=== PATIENT | female | born 1965 | race Caucasian/White ===

== ENCOUNTER 2022-07-03 21:53 | Emergency (ER) | payer MEDICARE, OTHER ==
[~2022-07-03] VITALS: Ht 165.1 cm; Wt 63.5 kg
[2022-07-03] MEDS ORDERED: diphenhydrAMINE 50 MG/1 ML VIAL IM ONE (22:45)
[2022-07-03] MEDS ORDERED: METOCLOPRAMIDE HCL 10 MG/2 ML VIAL IM ONE (22:45)
--- NOTE | 2022-07-03 22:59 | NUR ---
[employer] in room with patient. Badge #: [id number] officer Juan C
[2022-07-03 23:08] LABS: HEMATOCRIT 35.1 % (31.2-41.9); MEAN CORPUSCULAR VOLUME 81.8 fL (75.5-95.3); PLATELET COUNT (AUTO) 363 K/uL (179-408)
[2022-07-03 23:21] LABS: ALANINE AMINOTRANSFERASE 17 U/L (14-59); ALKALINE PHOSPHATASE 114 U/L (50-136); ASPARTATE AMINOTRANSFERASE 16 U/L (15-37); BILIRUBIN,DIRECT 0.1 mg/dL (0.0-0.2); BILIRUBIN,TOTAL 0.3 mg/dL (0.2-1.0); CARBON DIOXIDE 29 mmol/L (21-32); CHLORIDE 104 mmol/L (98-107); CREATININE 0.8 mg/dL (0.6-1.3); GLUCOSE 107 mg/dL (74-106); POTASSIUM 3.4 mmol/L (3.5-5.1); TOTAL PROTEIN, SERUM 7.6 g/dL (6.4-8.2); UREA NITROGEN, BLOOD 18 mg/dL (7-18)
[2022-07-03] MEDS ORDERED: diphenhydrAMINE 50 MG/1 ML VIAL ONE (23:48)
[2022-07-03 23:53] LABS: ETHANOL < 3 MG/DL (0-0)
[2022-07-04] MEDS ORDERED: ONDA4TAB5 PO (01:42)
--- NOTE | 2022-07-04 02:07 | NUR ---
Pt able to ambulate with no difficulty. Spoke with Dr. Méndez about the necessity to speak with a dialysis social worker tomorrow. Kept pt comfortable and given more juice and sandwich, and blankets.
[2022-07-04 03:28] VITALS: BP 128/65
== END 2022-07-04 02:07 | disposition home or self-care (01) ==
LOC: ER 21:53
DX: R51.9 Headache, unspecified (principal); R42 Dizziness and giddiness; R11.0 Nausea
CPT/HCPCS: 36415; 84484; 85025; 93005; A4663; G0480; J1200

== ENCOUNTER 2022-07-15 00:13 | Emergency (ER) | payer MEDICARE, OTHER ==
[~2022-07-15] VITALS: Ht 160 cm; Wt 63.5 kg
[~2022-07-15 00:13] MED LIST: ONDA4TAB5 PO
--- NOTE | 2022-07-15 01:14 | NUR ---
Patient able to walk to the restroom with steady gait. NAD noted
--- NOTE | 2022-07-15 01:16 | NUR ---
Dr Kennedy at bedside. MSE in progress
[2022-07-15] MEDS ORDERED: THIAMINE HCL 100 MG TABLET ONE (01:28)
[2022-07-15] MEDS ORDERED: THIAMINE HCL 100 MG TABLET PO ONE (01:30)
[2022-07-15 01:39] LABS: HEMATOCRIT 35.7 % (31.2-41.9); PLATELET COUNT (AUTO) 366 K/uL (179-408)
[2022-07-15 01:48] LABS: CREATININE 0.8 mg/dL (0.6-1.3)
[2022-07-15 01:54] LABS: *BILIRUBIN,URIN NEGATIVE (NEGATIVE); *BLOOD, URINE 1+ (NEGATIVE); *CLARITY,URINE CLEAR (CLEAR); *COLOR,URINE YELLOW (YELLOW); *KETONES,URINE NEGATIVE (NEGATIVE); *UROBILINOGEN,URINE 0.2 E.U./dl (NORMAL); LEUKOCYTE ESTERASE ,URINE 1+ (NEGATIVE); NITRITE, URINE NEGATIVE (NEGATIVE); UGLUCOSE NEGATIVE (NEGATIVE)
[2022-07-15 02:06] LABS: POTASSIUM 3.5 mmol/L (3.5-5.1)
[2022-07-15 02:16] LABS: BACTERIA,URINE NONE SEEN /HPF (NONE SEEN); SQUAMOUS EPITHELIAL CELL,UR FEW /HPF (NONE SEEN); WBC,URINE 0-3 /HPF (0-3)
--- NOTE | 2022-07-15 03:00 | NUR ---
Patient is discharged. Refused to sign the discharge paper stating "the doctor needs to do a pelvic exam"
--- NOTE | 2022-07-15 03:10 | NUR ---
Female [employer]fid systems engineer accompanied female patient for pelvic exam
--- NOTE | 2022-07-15 03:44 | NUR ---
Patient is discharged, refused to leave. insist to talk to Dr Kennedy. Dr Kennedy refused to talk to the patient. Dr Kennedy stated "she makes up reasons to stay"
--- NOTE | 2022-07-15 03:47 | NUR ---
Patient refuse to leave the ER. Argumentative with the staff.
--- NOTE | 2022-07-15 03:50 | NUR ---
security at bedside
--- NOTE | 2022-07-15 03:55 | NUR ---
Patient discharged in stable condition. Written and verbal after care instructions given. Patient refused to sign discharge paper. Patient waiting in the waiting room for marriage and family social worker
[2022-07-15 03:57] VITALS: BP 139/78
[2022-07-17 03:06] LABS: *GC NAA Negative (Negative)
[2022-07-17 04:06] LABS: *TRIC.VAG. NAA Negative (Negative)
== END 2022-07-15 03:57 | disposition home or self-care (01) ==
LOC: ER 00:19
DX: F10.129 Alcohol abuse with intoxication, unspecified (principal); Y90.5 Blood alcohol level of 100-119 mg/100 ml; R31.29 Other microscopic hematuria; D64.9 Anemia, unspecified; R03.0 Elevated blood-pressure reading, without diagnosis of hypertension; Z59.89 Other problems related to housing and economic circumstances
CPT/HCPCS: 36415; 83735; 85025; 87086; 87210; 87491; A4663; G0480

== ENCOUNTER 2022-08-17 17:09 | Emergency (ER) | payer MEDICARE, OTHER ==
[~2022-08-17] VITALS: Ht 162.6 cm; Wt 63.5 kg
--- NOTE | 2022-08-17 18:54 | NUR ---
Patient just came out of the ER restroom. Patient is calm, NAD, pending available ER [email or web address] time.
--- NOTE | 2022-08-17 19:01 | NUR ---
HELIOAR to charge authorizer Adrian.
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
--- NOTE | 2022-08-17 20:00 | NUR ---
Patient was called to be placed in room but was not present in the waiting room. PATIENT WAS TRIAGED BUT NOT SEEN BY ERMD.
== END 2022-08-17 20:00 | disposition left against medical advice (07) ==
LOC: ER 17:14
DX: Z53.21 Procedure and treatment not carried out due to patient leaving prior to being seen by health care provider (principal)